=== PATIENT | female | born 1990 | race African-American/Black ===

== ENCOUNTER 2018-01-17 15:54 | Inpatient (IN) | payer SELFPAY ==
[2018-01-17] MEDS ORDERED: FENTANYL CITRATE INJ/PF 100 MCG/2 ML AMPUL IM ONE (16:08)
--- NOTE | 2018-01-17 16:09 | ER Document Report ---
ED Medical Screen (RME) - General Chief Complaint: Abdominal Pain Stated Complaint: ABDOMINAL PAIN Time Seen by Provider: 01/17/18 16:04 Notes: This is a 27-year-old female patient who presents emergency department screaming. States that she is having severe pelvic pain. Was told that she was having a miscarriage 3 weeks ago. Reportedly had an ultrasound however no records are available that I can find patient was here. Has not seen OB. Has been bleeding on and off for 3 weeks. I have greeted and performed a rapid initial assessment of this patient. A comprehensive ED assessment and evaluation of the patient, analysis of test results and completion of the medical decision making process will be conducted by additional ED providers. TRAVEL OUTSIDE OF THE [place] IN LAST 30 DAYS: No - Related Data Allergies/Adverse Reactions: acetaminophen [From NyQuil] Allergy (Verified 01/17/18 15:55) dextromethorphan [From NyQuil] Allergy (Verified 01/17/18 15:55) doxylamine [From NyQuil] Allergy (Verified 01/17/18 15:55) guaifenesin [From Robitussin] Allergy (Verified 01/17/18 15:55) pseudoephedrine [From NyQuil] Allergy (Verified 01/17/18 15:55) Review of Systems - Review of Systems Notes: Review of systems positive for the following: with vaginal bleeding and severe pelvic pain Physical Exam - General General appearance: Alert In distress: Severe Course - Re-evaluation Re-evalutation: 01/17/18 16:11 initial dose of fentanyl IM as patient was uncontrolled will be screaming and possible pain
[2018-01-17 16:35] LABS: ABSOLUTE EOSINOPHILS # (AUTO) 0.1 10^3/uL (0.0-0.6); ABSOLUTE LYMPHOCYTES (AUTO) 1.6 10^3/uL (0.5-4.7); ABSOLUTE MONOCYTES (AUTO) 0.6 10^3/uL (0.1-1.4); ABSOLUTE NEUT (AUTO) 13.2 10^3/uL (1.7-8.2); BASOPHILS % (AUTO) 0.3 % (0-2); EOSINOPHILS % (AUTO) 0.7 % (0-6); HEMATOCRIT 38.2 % (36.0-47.0); HEMOGLOBIN 13.2 g/dL (12.0-15.5); LYMPHOCYTES % (AUTO) 10.1 % (13-45); MEAN CORPUSCULAR HEMOGLOBIN 29.8 pg (27.0-33.4); MEAN CORPUSCULAR HGB CONC 34.6 g/dL (32.0-36.0); MEAN CORPUSCULAR VOLUME 86 fl (80-97); MONOCYTES % (AUTO) 3.7 % (3-13); PLATELET COUNT 298 10^3/uL (150-450); RED BLOOD COUNT 4.43 10^6/uL (3.72-5.28); RED CELL DISTRIBUTION WIDTH 13.7 % (11.5-14.0); SEGMENTED NEUTROPHILS % (AUTO) 85.2 % (42-78); TOTAL CELLS COUNTED % (AUTO) 100 %; WHITE BLOOD COUNT 15.5 10^3/uL (4.0-10.5)
[2018-01-17] MEDS ORDERED: KETOROLAC TROMETHAMINE INJ/PF 30 MG/1 ML SDV IV ONE (17:00)
[2018-01-17] MEDS ORDERED: FENTANYL CITRATE INJ/PF 100 MCG/2 ML AMPUL IV ONE (17:21)
--- NOTE | 2018-01-17 19:07 | RADIOLOGY REPORT (SQ) ---
EXAM DESCRIPTION: U/S OB TRANSVAG W/DOPPLER COMPLETED DATE/TIME: 01/17/2018 6:55 pm REASON FOR STUDY: + preg with bleeding and pain COMPARISON: 12/27/2017. Not available for comparison. TECHNIQUE: Transvaginal and transabdominal static and realtime grayscale images acquired of the pelv is. Additional selected spectral and color Doppler images recorded. All images stored on PACs. [facility] CLINICAL DATES: LMP 10/26/2017. 11 weeks 6 days. LIMITATIONS: None. FINDINGS: No intrauterine gestation is identified. There are complex areas within the endocervical and endometrial canal. UTERUS: No masses or anomalies. 12.9 x 6.6 x 6.1 cm. CERVICAL LENGTH: 3.3 mm. There is some fluid in the endocervical canal. RIGHT ADNEXA: Ovary not seen. No adnexal free fluid. No adnexal masses. LEFT ADNEXA: Normal ovary with normal vascular flow. 4.7 x 2.2 x 1.8 cm. No adnexal free fluid. No adnexal masses. FREE FLUID: None. OTHER: No other significant finding. IMPRESSION: No intrauterine gestation is seen. There are complex areas within the endometrial canal in the endocervical canal. Likely miscarriage with retained products of conception. TECHNICAL DOCUMENTATION: JOB ID: [id number]- All Rights Reserved rev Reading location - IP/workstation name: [email or web address]
[2018-01-17] MEDS ORDERED: HYDROMORPHONE HCL INJ/PF 2 MG/ML AMPULE IV ONE (19:41)
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
[2018-01-17 20:26] LABS: HEMATOCRIT 36.7 % (36.0-47.0); HEMOGLOBIN 12.7 g/dL (12.0-15.5); MEAN CORPUSCULAR HEMOGLOBIN 29.8 pg (27.0-33.4); MEAN CORPUSCULAR HGB CONC 34.5 g/dL (32.0-36.0); MEAN CORPUSCULAR VOLUME 86 fl (80-97); PLATELET COUNT 220 10^3/uL (150-450); RED BLOOD COUNT 4.25 10^6/uL (3.72-5.28); RED CELL DISTRIBUTION WIDTH 13.6 % (11.5-14.0)
[2018-01-17 20:43] LABS: ABSOLUTE LYMPHOCYTES# (MANUAL) 0.8 10^3/uL (0.5-4.7); ABSOLUTE MONOCYTES # (MANUAL) 0.2 10^3/uL (0.1-1.4); ABSOLUTE NEUTROPHILS# (MANUAL) 17.9 10^3/uL (1.7-8.2); BAND NEUTROPHILS % (MANUAL) 3 % (3-5); BASOPHILS % (MANUAL) 0 % (0-2); EOSINOPHILS % (MANUAL) 1 % (0-6); LYMPHOCYTES % (MANUAL) 4 % (13-45); MONOCYTES % (MANUAL) 1 % (3-13); PLATELET COMMENT ADEQUATE; RBC MORPHOLOGY COMMENT NORMO-CYTIC/CHROMIC; SEGMENTED NEUTROPHILS % (MAN) 91 % (42-78); TOTAL CELLS COUNTED 100
[2018-01-17] MEDS ORDERED: HYDROCODONE/ACETAMINOPHEN 5-325 MG (6 TAB/ER DISP) PO PRN (20:44)
[2018-01-17] MEDS ORDERED: AMPICILLIN SOD/SULBACTAM 3 GM VIAL IV ONE (21:24)
[2018-01-17] MEDS ORDERED: ONDANSETRON HCL INJ/PF 4 MG/2 ML SDV IV ONE (21:27)
--- NOTE | 2018-01-17 21:30 | ER Document Report ---
Doctor's Note Notes: 01/17/18 21:29 The patient's nurse approached me about a fever of 102.0 when they went to discharge her. I reviewed the chart and the lab work, and found that a repeat CBC showed a rise in the WBCs, and more of a shift to include bands. The ultrasound was read as retained products of conception. I discussed the case with Dr. Soto, who agreed to admit the patient and do a D&C in the morning. She was given 3 g of Unasyn IV in the emergency room, blood cultures were drawn , and a Chem-12 was done.
[2018-01-17 21:49] LABS: ALANINE AMINOTRANSFERASE 14 U/L (9-52); ALBUMIN 4.2 g/dL (3.5-5.0); ALKALINE PHOSPHATASE 57 U/L (38-126); ANION GAP 11 (5-19); ASPARTATE AMINO TRANSFERASE 16 U/L (14-36); BILIRUBIN,DIRECT 0.2 mg/dL (0.0-0.4); BILIRUBIN,TOTAL 0.3 mg/dL (0.2-1.3); BLOOD UREA NITROGEN 8 mg/dL (7-20); CARBON DIOXIDE 24 mmol/L (22-30); CHLORIDE 106 mmol/L (98-107); GLUCOSE 122 mg/dL (75-110); POTASSIUM 3.8 mmol/L (3.6-5.0); SODIUM 140.7 mmol/L (137-145); TOTAL PROTEIN 7.5 g/dL (6.3-8.2)
[2018-01-17 22:31] LABS: APPEARANCE,URINE SLIGHTLY-CLOUDY; BILIRUBIN,URINE NEGATIVE (NEGATIVE); COLOR,URINE YELLOW; GLUCOSE, URINE NEGATIVE (NEGATIVE); KETONES,URINE NEGATIVE (NEGATIVE); LEUKOCYTE ESTERASE,URINE NEGATIVE (NEGATIVE); NITRITE,URINE NEGATIVE (NEGATIVE); PROTEIN,URINE 30 mg/dL (NEGATIVE); URINE SPECIFIC GRAVITY 1.019
[2018-01-18] MEDS ORDERED: IBUPROFEN 800 MG TABLET PO ONE (00:15)
[2018-01-18] MEDS: RINGERS SOLUTION,LACTATED 1,000 ML IV PRN ×2 (00:20→07:10)
--- NOTE | 2018-01-18 00:36 | PDOC H&P ---
History of Present Illness Admission Date/PCP: 01/17/18 21:53 Patient complains of: vaginal bleeding, vomiting, pelvic pain History of Present Illness: IWONA WADE is a 27 year old female Past Surgical History Past Surgical History: Reports: Cholecystectomy Social History Smoking Status: Unknown if Ever Smoked Family History Family History: Reviewed & Not Pertinent Parental Family History Reviewed: Yes Children Family History Reviewed: Yes Sibling(s) Family History Reviewed.: Yes Medication/Allergy Home Medications: Oxycodone HCl/Acetaminophen [Percocet 5-325 mg Tablet] 1 - 2 tab PO Q6H PRN #12 tablet 01/17/18 Allergies/Adverse Reactions: dextromethorphan [From NyQuil] Allergy (Verified 01/17/18 15:55) doxylamine [From NyQuil] Allergy (Verified 01/17/18 15:55) guaifenesin [From Robitussin] Allergy (Verified 01/17/18 15:55) pseudoephedrine [From NyQuil] Allergy (Verified 01/17/18 15:55) Physical Exam - Physical Exam Vital Signs: Temp Pulse Resp BP Pulse Ox 102.0 F H 119 H 20 121/81 99 01/17/18 21:01 01/17/18 21:01 01/17/18 21:01 01/17/18 21:47 01/17/18 22:01 Intake & Output 01/16/18 01/17/18 01/18/18 06:59 06:59 06:59 Weight 67.132 kg General appearance: PRESENT: mild distress GI/Abdominal exam: PRESENT: soft, tenderness Result Laboratory Results: 01/17/18 22:10 Urine Color YELLOW Urine Appearance SLIGHTLY-CLOUDY Urine pH 5.0 Ur Specific [place] 1.019 Urine Protein 30 H Urine Glucose (UA) NEGATIVE Urine Ketones NEGATIVE Urine Blood MODERATE H Urine Nitrite NEGATIVE Ur Leukocyte Esterase NEGATIVE Urine WBC (Auto) 6 Urine RBC (Auto) 1 Impressions: Transvaginal US 01/17/18 16:11 IMPRESSION: No intrauterine gestation is seen. There are complex areas within the endometrial canal in the endocervical canal. Likely miscarriage with retained products of conception. Assessment & Plan - Diagnosis (1) Fever Qualifiers: Fever type: unspecified Qualified Code(s): R50.9 - Fever, unspecified Is this a current diagnosis for this admission?: Yes (2) Leukocytosis Qualifiers: Leukocytosis type: bandemia Qualified Code(s): D72.825 - Bandemia Is this a current diagnosis for this admission?: Yes (3) Retained products of conception Is this a current diagnosis for this admission?: Yes - Time Critical Time spent with patient: Less than 15 minutes - Inpatient Certification Medical Necessity: Need Close Monitoring Due to Risk of Patient Decompensation, Need for IV Antibiotics - Plan Summary Plan Summary: IV antibiotics and plan for possible D&C in AM if sable. repeat CBC in AM to assess Leukocytosis.
[2018-01-18] MEDS ORDERED: PROMETHAZINE HCL INJ 25 MG/1 ML VIAL ONE ×2 (00:52→15:21)
[2018-01-18] MEDS ORDERED: MORPHINE SULFATE 10 MG/ML INJ ONE (00:53)
[2018-01-18] MEDS: OXYCODONE-ACETAMINOPHEN 5-325 MG TABLET PO PRN ×3 (05:21→21:45)
[2018-01-18 05:45] LABS: HEMATOCRIT 34.1 % (36.0-47.0); HEMOGLOBIN 11.8 g/dL (12.0-15.5); MEAN CORPUSCULAR HEMOGLOBIN 29.6 pg (27.0-33.4); MEAN CORPUSCULAR HGB CONC 34.6 g/dL (32.0-36.0); MEAN CORPUSCULAR VOLUME 86 fl (80-97); PLATELET COUNT 195 10^3/uL (150-450); RED BLOOD COUNT 3.98 10^6/uL (3.72-5.28); RED CELL DISTRIBUTION WIDTH 13.9 % (11.5-14.0); WHITE BLOOD COUNT 20.3 10^3/uL (4.0-10.5)
[2018-01-18 06:04] LABS: ABSOLUTE MONOCYTES # (MANUAL) 0.8 10^3/uL (0.1-1.4); ABSOLUTE NEUTROPHILS# (MANUAL) 18.3 10^3/uL (1.7-8.2); BAND NEUTROPHILS % (MANUAL) 5 % (3-5); BASOPHILS % (MANUAL) 1 % (0-2); EOSINOPHILS % (MANUAL) 0 % (0-6); LYMPHOCYTES % (MANUAL) 5 % (13-45); MONOCYTES % (MANUAL) 4 % (3-13); SEGMENTED NEUTROPHILS % (MAN) 85 % (42-78); TOTAL CELLS COUNTED 100
[2018-01-18 06:05] LABS: PLATELET COMMENT ADEQUATE; RBC MORPHOLOGY COMMENT NORMO-CYTIC/CHROMIC
[2018-01-18] MEDS: IBUPROFEN 800 MG TABLET PO SCH ×3 (07:09→21:29)
[2018-01-18] MEDS ORDERED: AMPICILLIN SOD/SULBACTAM 3 GM VIAL IV SCH (09:00)
[2018-01-18] MEDS ORDERED: AMPICILLIN SODIUM/SULBACTAM NA 3 GM in NORMAL SALINE 100 ML IV SCH (09:00)
[2018-01-18] MEDS ORDERED: HYDROMORPHONE HCL INJ/PF 2 MG/ML AMPULE ONE (09:24)
[2018-01-18] MEDS ORDERED: ACETAMINOPHEN 1,000 MG/100 ML RTUPB IV ONE (09:38)
[2018-01-18] MEDS ORDERED: FENTANYL CITRATE INJ/PF 100 MCG/2 ML AMPUL ONE (09:49)
[2018-01-18] MEDS ORDERED: MIDAZOLAM 2 MG/2 ML INJ ONE (09:49)
[2018-01-18] MEDS ORDERED: OXYCODONE-ACETAMINOPHEN 5-325 MG TABLET PO PRN ×2 (10:22)
[2018-01-18] MEDS ORDERED: MEPERIDINE HCL/PF INJ 25 MG/1 ML DISP.SYRIN IV PRN (10:22)
[2018-01-18] MEDS ORDERED: PROMETHAZINE HCL INJ 25 MG/1 ML VIAL IV PRN ×2 (10:22)
[2018-01-18] MEDS ORDERED: DIPHENHYDRAMINE HCL 50 MG/ML VIAL IV PRN (10:22)
--- NOTE | 2018-01-18 11:36 | OPERATIVE REPORT E ---
Operative Report NAME: IWONA WADE : 1990 AGE: 27Y DATE OF SURGERY: 01/18/2018 ROOM: 213 PREOPERATIVE DIAGNOSIS: WITH RETAINED PRODUCTS. POSTOPERATIVE DIAGNOSIS: WITH RETAINED PRODUCTS. OPERATION: Dilation and curettage. SURGEON: Tabby MEYER M.D. ESTIMATED BLOOD LOSS: Less than 20 mL TISSUE REMOVED OR ALTERED: Contents of uterus. PROCEDURE: Patient was placed in a dorsal lithotomy position. She was prepped and draped in sterile fashion. Cervix was visualized and grasped with a single-tooth tenaculum. Uterus sounded to a depth of 16 cm. The os was sufficiently opened prior to beginning and a sharp curettage was performed with a minimal about of tissue being recovered. Single-tooth tenaculum was removed and the procedure terminated. She was taken to the recovery room in good condition. DICTATING PHYSICIAN: Tabby MEYER M.D. [id number] PHY#: [id number] ID: [id number] JOB#: [id number] ACCT: [id number] cc:Tabby MEYER M.D. >
[2018-01-18] MEDS ORDERED: METRONIDAZOLE 500 MG/NS RTU 500 MG/100 ML RTUPB IV SCH (12:00)
[2018-01-18] MEDS: AMPICILLIN SODIUM/SULBACTAM NA 1.5 GM in NORMAL SALINE 50 ML IV SCH ×3 (12:42→21:28)
[2018-01-18] MEDS: METRONIDAZOLE 500 MG/NS RTU 500 MG/100 ML RTUPB IV SCH ×3 (13:01→23:43)
[2018-01-18] MEDS ORDERED: PROMETHAZINE HCL INJ 25 MG/1 ML VIAL IV ONE (15:45)
[2018-01-18] MEDS: DEXTROSE 5%-LACTATED RINGERS 1,000 ML IV PRN (16:40)
[2018-01-18] MEDS ORDERED: METRONIDAZOLE 500 MG/NS RTU 500 MG/100 ML RTUPB IV ONE (17:57)
[2018-01-19] MEDS: AMPICILLIN SODIUM/SULBACTAM NA 1.5 GM in NORMAL SALINE 50 ML IV SCH ×4 (02:20→20:55)
[2018-01-19] MEDS: IBUPROFEN 800 MG TABLET PO SCH ×3 (06:11→22:34)
[2018-01-19] MEDS: METRONIDAZOLE 500 MG/NS RTU 500 MG/100 ML RTUPB IV SCH ×3 (06:12→18:17)
--- NOTE | 2018-01-19 16:16 | PDOC PROGRESS REPORT ---
Subjective Progress Note for:: 01/19/18 Subjective:: pain improved. pt reports some nausea today. fevers last night but none this am. vaginal spotting today Reason For Visit: VAGINAL BLEEDING, MISSED Physical Exam - Physical Exam Vital Signs: Temp Pulse Resp BP Pulse Ox 98.6 F 94 18 108/71 97 01/19/18 12:47 01/19/18 12:47 01/19/18 12:47 01/19/18 12:47 01/19/18 12:47 Intake & Output 01/18/18 01/19/18 01/20/18 06:59 06:59 06:59 Intake Total 50 Balance 50 General appearance: PRESENT: no acute distress, well-developed, well-nourished Head exam: PRESENT: atraumatic, normocephalic Respiratory exam: PRESENT: clear to auscultation garrick, symmetrical, unlabored Cardiovascular exam: PRESENT: RRR. ABSENT: diastolic murmur, rubs, systolic murmur Pulses: PRESENT: normal dorsalis pedis pul, +2 pedal pulses bilateral Vascular exam: PRESENT: normal capillary refill GI/Abdominal exam: PRESENT: ascites Rectal exam: PRESENT: deferred Extremities exam: PRESENT: full ROM. ABSENT: calf tenderness, clubbing, pedal edema Neurological exam: PRESENT: alert, awake, oriented to person, oriented to place , oriented to time, oriented to situation, CN II-XII grossly intact. ABSENT: motor sensory deficit Psychiatric exam: PRESENT: appropriate affect, normal mood. ABSENT: homicidal ideation, suicidal ideation Skin exam: PRESENT: dry, intact, warm. ABSENT: cyanosis, rash Result Impressions: Transvaginal US 01/17/18 16:11 IMPRESSION: No intrauterine gestation is seen. There are complex areas within the endometrial canal in the endocervical canal. Likely miscarriage with retained products of conception. Status: Imported from PACS Assessment & Plan - Diagnosis (1) Fever Qualifiers: Fever type: unspecified Qualified Code(s): R50.9 - Fever, unspecified Is this a current diagnosis for this admission?: Yes Plan: afebrile since 0400 this am. Repeat CBC in am. continue with abx. Blood cultures positive but possible contaminant - recommend 48 hours afebrile. Patient is aware of the plan (2) Leukocytosis Qualifiers: Leukocytosis type: bandemia Qualified Code(s): D72.825 - Bandemia Is this a current diagnosis for this admission?: Yes Plan: see above (3) Spontaneous Is this a current diagnosis for this admission?: Yes Plan: s/p D&C - Time Medications reviewed and adjusted accordingly: Yes Anticipated discharge: Home Within: within 48 hours - Inpatient Certification Based on my medical assessment, after consideration of the patient's comorbidities, presenting symptoms, or acuity I expect that the services needed warrant INPATIENT care.: Yes I certify that my determination is in accordance with my understanding of Medicare's requirements for reasonable and necessary INPATIENT services [42 CFR 412.3e].: Yes Medical Necessity: Need For IV Fluids, Need for Pain Control, Need for IV Antibiotics
[2018-01-19] MEDS: OXYCODONE-ACETAMINOPHEN 5-325 MG TABLET PO PRN ×2 (16:37→20:54)
[2018-01-19] MEDS: DEXTROSE 5%-LACTATED RINGERS 1,000 ML IV PRN (19:57)
[2018-01-19] MEDS: ONDANSETRON HCL INJ/PF 4 MG/2 ML SDV IV PRN (23:04)
[2018-01-20] MEDS ORDERED: METRONIDAZOLE 500 MG/NS RTU 500 MG/100 ML RTUPB IV ONE (00:21)
[2018-01-20] MEDS: METRONIDAZOLE 500 MG/NS RTU 500 MG/100 ML RTUPB IV SCH ×2 (00:24→05:38)
[2018-01-20] MEDS: AMPICILLIN SODIUM/SULBACTAM NA 1.5 GM in NORMAL SALINE 50 ML IV SCH ×2 (03:20→09:32)
[2018-01-20] MEDS: OXYCODONE-ACETAMINOPHEN 5-325 MG TABLET PO PRN ×2 (03:28→09:31)
[2018-01-20] MEDS: ONDANSETRON HCL INJ/PF 4 MG/2 ML SDV IV PRN (05:41)
[2018-01-20] MEDS: IBUPROFEN 800 MG TABLET PO SCH (05:41)
[2018-01-20 07:38] LABS: ABSOLUTE EOSINOPHILS # (AUTO) 0.3 10^3/uL (0.0-0.6); ABSOLUTE LYMPHOCYTES (AUTO) 0.9 10^3/uL (0.5-4.7); ABSOLUTE MONOCYTES (AUTO) 0.3 10^3/uL (0.1-1.4); ABSOLUTE NEUT (AUTO) 3.3 10^3/uL (1.7-8.2); BASOPHILS % (AUTO) 0.4 % (0-2); EOSINOPHILS % (AUTO) 5.9 % (0-6); HEMATOCRIT 29.3 % (36.0-47.0); HEMOGLOBIN 10.7 g/dL (12.0-15.5); LYMPHOCYTES % (AUTO) 17.9 % (13-45); MEAN CORPUSCULAR HEMOGLOBIN 31.3 pg (27.0-33.4); MEAN CORPUSCULAR HGB CONC 36.6 g/dL (32.0-36.0); MEAN CORPUSCULAR VOLUME 86 fl (80-97); MONOCYTES % (AUTO) 7.2 % (3-13); PLATELET COUNT 167 10^3/uL (150-450); RED BLOOD COUNT 3.43 10^6/uL (3.72-5.28); RED CELL DISTRIBUTION WIDTH 13.8 % (11.5-14.0); SEGMENTED NEUTROPHILS % (AUTO) 68.6 % (42-78); TOTAL CELLS COUNTED % (AUTO) 100 %; WHITE BLOOD COUNT 4.8 10^3/uL (4.0-10.5)
[2018-01-20] MEDS ORDERED: CITRIC ACID/SODIUM CITRATE ORAL SOLN 15 ML UDCUP PO ONE (08:00)
[2018-01-20] MEDS ORDERED: MAG HYDROX/AL HYDROX/SIMETH SUSP 30 ML UDCUP PO PRN (08:01)
[2018-01-20 08:23] VITALS: BP 106/73
--- NOTE | 2018-01-20 09:29 | PDOC PROGRESS REPORT ---
Subjective Progress Note for:: 01/20/18 Subjective:: pt states she feels better Reason For Visit: VAGINAL BLEEDING, MISSED Physical Exam - Physical Exam Vital Signs: Temp Pulse Resp BP Pulse Ox 98.4 F 76 16 106/73 98 01/20/18 08:06 01/20/18 08:06 01/20/18 08:06 01/20/18 08:06 01/20/18 08:06 Intake & Output 01/19/18 01/20/18 01/21/18 06:59 06:59 06:59 Intake Total 600 Balance 600 General appearance: PRESENT: no acute distress GI/Abdominal exam: PRESENT: normal bowel sounds, soft Result Laboratory Results: 01/20/18 07:05 01/20/18 07:05 WBC 4.8 RBC 3.43 L Hgb 10.7 L Hct 29.3 L MCV 86 MCH 31.3 MCHC 36.6 H RDW 13.8 Plt Count 167 Seg Neutrophils % 68.6 Lymphocytes % 17.9 Monocytes % 7.2 Eosinophils % 5.9 Basophils % 0.4 Absolute Neutrophils 3.3 Absolute Lymphocytes 0.9 Absolute Monocytes 0.3 Absolute Eosinophils 0.3 Absolute Basophils 0.0 Impressions: Transvaginal US 01/17/18 16:11 IMPRESSION: No intrauterine gestation is seen. There are complex areas within the endometrial canal in the endocervical canal. Likely miscarriage with retained products of conception. Assessment & Plan - Diagnosis (1) Fever Qualifiers: Fever type: unspecified Qualified Code(s): R50.9 - Fever, unspecified Is this a current diagnosis for this admission?: Yes (2) Leukocytosis Qualifiers: Leukocytosis type: bandemia Qualified Code(s): D72.825 - Bandemia Is this a current diagnosis for this admission?: Yes (3) Missed Is this a current diagnosis for this admission?: Yes (5) Spontaneous Is this a current diagnosis for this admission?: Yes (6) Vaginal bleeding Is this a current diagnosis for this admission?: Yes - Plan Summary Plan Summary: continue IV antibiotics for another 24 hours and then d/c home on PO antibiotics
[2018-01-20] MEDS: DEXTROSE 5%-LACTATED RINGERS 1,000 ML IV PRN (09:44)
[2018-01-20] MEDS ORDERED: FAMOTIDINE 20 MG TABLET PO SCH (10:00)
== END 2018-01-20 10:57 | disposition left against medical advice (07) | DRG 770 ==
LOC: EDBD → ER 15:54 → EH 21:53 → INTOOBSV 21:53 → 2N 23:16 → OBSVTOIN 01-19 09:30
PROVIDERS: ADMIT Obstetrics & Gynecology; ATTEND Obstetrics & Gynecology
PROC: 10D17ZZ Extraction of Products of Conception, Retained, Via Natural or Artificial Opening (ICD-10-PCS; principal; 2018-01-18 09:15)
DX: O02.1 Missed abortion (principal); D72.825 Bandemia; Z90.49 Acquired absence of other specified parts of digestive tract; Z88.6 Allergy status to analgesic agent; Z88.8 Allergy status to other drugs, medicaments and biological substances
CPT/HCPCS: 36415; 76817; 80053; 81001; 84702; 85025; 86900; 86901; 87040; 87077; 87186; 88305; 93976; 940; 96374; 96375; 96376; 99285; G0378; J0131; J0295; J1170; J1885; J2250; J2270; J2405; J2550; J3010; J3490